=== PATIENT | female | born 1985 | race Two or more races ===

== ENCOUNTER 2017-09-22 18:53 | Emergency (ER) | payer SELFPAY ==
[~2017-09-22] VITALS: Ht 162.6 cm; Wt 45.8 kg
[2017-09-22 19:02] VITALS: BP 117/78
[2017-09-22] MEDS ORDERED: cefTRIAXone SOD 1,000 MG VL IM ONE (22:45)
[2017-09-22] MEDS ORDERED: TETANUS-DIPTH-ACEL PERTUSSIS 0.5ML SYRG IM ONE (22:45)
[2017-09-22] MEDS ORDERED: cefTRIAXone SOD 500 MG VL ONE (23:04)
[2017-09-22] MEDS ORDERED: cefTRIAXone W LIDOCAINE 1 GM IM IM ONE (23:15)
== END 2017-09-22 22:52 | disposition home or self-care (01) ==
LOC: ER 18:58
DX: S61.452A Open bite of left hand, initial encounter (principal); S61.451A Open bite of right hand, initial encounter; W55.01XA Bitten by cat, initial encounter; Y93.89 Activity, other specified; Y99.8 Other external cause status; Y92.89 Other specified places as the place of occurrence of the external cause
CPT/HCPCS: 96372; 99283; J0696